=== PATIENT | female | born 1980 | race Caucasian/White ===

== ENCOUNTER 2017-02-17 11:53 | Emergency (ER) | payer OTHER ==
[~2017-02-17] VITALS: Ht 165.1 cm; Wt 72.7 kg
[~2017-02-17 11:53] MED LIST: ACYCLOVIR800 MG PO; AZITHROMYCIN250 MG PO; FENOFIBRATE145 MG PO; FERROUS SULF325 M1 PO; FLUZONE SPLT1 M1 IM; FREESTYLE LANCET; GLYBURIDE2.5 M1 PO; HYDROCHLORO25 MG/TAB PO; KEFLEX500 MG PO; LABETALOL200 MG PO; LISINOPRIL10 MG PO; METFORMIN500 M1 PO; METFORMIN500 MG PO; OBTREX DHA PO; PREDNISONE10 MG PO; PRENATA3 OR; PROCARDIA XL30 MG PO; TUBERSOL5 MG/0.1 M ID; [UNRECOGNIZED DRUG - CODE]
[2017-02-17] MEDS ORDERED: Metformin PO (12:10)
[2017-02-17] MEDS ORDERED: LOPID600 MG PO (12:16)
[2017-02-17 12:44] LABS: ALBUMIN 4.7 g/dL (3.2-5.0); ALKALINE PHOSPHATASE 85 u/l (38-126); ANION GAP 17 (6-22 (CALC)); BILIRUBIN, TOTAL 0.6 mg/dL (0.0-1.4); BUN 9 mg/dL (7-17); BUN/CREATININE RATIO 19 (12-20 (CALC)); CARBON DIOXIDE 24 mmol/l (22-30); CHLORIDE 101 mmol/l (95-108); CREATININE 0.5 mg/dL (0.5-1.0); GFR > 60 ML/MIN (>=60 (CALC)); GFR FOR AFR.AMER. > 60 ML/MIN (>=60 (CALC)); GLUCOSE 344 mg/dL (65-105); POTASSIUM 4.1 mmol/l (3.5-5.1); SGOT/AST 17 u/l (14-36); SGPT/ALT 28 u/l (9-52); SODIUM 138 mmol/l (137-146); TOTAL PROTEIN 7.5 g/dL (6.3-8.2)
[2017-02-17 12:47] LABS: HEMATOCRIT 46.5 % (37.0-47.0); HEMOGLOBIN 15.9 g/dl (12.0-16.0); IMMATURE GRANULOCYTES 0.3 % (0.0-1.0); MEAN CELL VOLUME 88.4 fL CALC (80.0-100.0); MEAN CORPUSCULAR HGB 30.2 pG CALC (26.0-32.0); MEAN CORPUSCULAR HGB CONC 34.2 g/L CALC (32.0-36.0); NEUT# 5.09 thou/uL (2.00-7.15); RED BLOOD COUNT 5.26 mill/uL (4.20-5.60); RED CELL DISTRI WIDTH 12.8 % (11.5-15.5)
[2017-02-17 12:56] LABS: MYOGLOBIN 15 ng/mL (0 - 62)
[2017-02-17 13:19] LABS: URINE BILIRUBIN - DIPSTICK NEGATIVE (NEGATIVE); URINE BLOOD DIPSTICK TRACE-INTACT (NEGATIVE); URINE CLARITY CLEAR; URINE COLOR YELLOW; URINE GLUCOSE - DIPSTICK >=1000 mg/dL (NEGATIVE); URINE KETONE NEGATIVE (NEGATIVE); URINE LEUK ESTERASE NEGATIVE (NEGATIVE); URINE NITRITE - DIPSTICK NEGATIVE (Negative); URINE PH 5.5 (4.5-8.0); URINE PROTEIN - DIPSTICK NEGATIVE (NEG-TRACE); URINE SPECIFIC GRAVITY <=1.005; URINE UROBILINOGEN - DIPSTICK 0.2 E.U./dL (0.2)
[2017-02-17 13:20] LABS: INTERNATIONAL NORMALIZED RATIO 0.9 RATIO (0.7-1.3)
[2017-02-17 13:21] LABS: BARBITURATES NEGATIVE (NEGATIVE); COCAINE NEGATIVE (NEGATIVE); METHADONE NEGATIVE (NEGATIVE); OXCYCODONE NEGATIVE (NEGATIVE); TETRAHYDROCANNABIONOL NEGATIVE (NEGATIVE); TRICYLIC ANTIDEPRESSANTS NEGATIVE (NEGATIVE)
[2017-02-17 13:29] LABS: D-DIMER 0.33 mg/L (0.19-0.60)
[2017-02-17 16:50] VITALS: BP 137/80
== END 2017-02-17 16:58 | disposition home or self-care (01) | DRG 313 ==
LOC: ED 11:53
PROVIDERS: Emergency Medicine
DX: R07.89 Other chest pain (principal); I10 Essential (primary) hypertension; E11.9 Type 2 diabetes mellitus without complications; E78.00 Pure hypercholesterolemia, unspecified; F17.210 Nicotine dependence, cigarettes, uncomplicated

== ENCOUNTER 2020-09-05 20:36 | Emergency (ER) | payer OTHER ==
[~2020-09-05] VITALS: Ht 165.1 cm; Wt 72.2 kg
[~2020-09-05 20:36] MED LIST changes: +LOPID600 MG PO; +METFORMIN500 M2 PO
[2020-09-05] MEDS ORDERED: LISINOP/HCTZ1 TA2 PO (20:57)
[2020-09-05] MEDS ORDERED: BACTRIM DS1 TAB PO (20:57)
[2020-09-05 21:23] VITALS: BP 188/93
== END 2020-09-05 21:35 | disposition home or self-care (01) ==
LOC: ED 20:36
DX: L03.115 Cellulitis of right lower limb (principal); I10 Essential (primary) hypertension; E11.9 Type 2 diabetes mellitus without complications; F17.200 Nicotine dependence, unspecified, uncomplicated; Z79.84 Long term (current) use of oral hypoglycemic drugs

== ENCOUNTER 2020-10-13 10:35 | Emergency (ER) | payer OTHER ==
[~2020-10-13] VITALS: Ht 165.1 cm; Wt 71.3 kg
[~2020-10-13 10:35] MED LIST changes: +BACTRIM DS1 TAB PO; +LISINOP/HCTZ1 TA2 PO
[2020-10-13] MEDS ORDERED: LISINOPRIL20 M1 PO (11:10)
[2020-10-13] MEDS ORDERED: PRE-NATAL PO (11:12)
[2020-10-13] MEDS ORDERED: FLOXIN OTIC0.3 % AD (12:24)
[2020-10-13 12:36] VITALS: BP 139/87
== END 2020-10-13 12:36 | disposition home or self-care (01) ==
LOC: ED 10:35
DX: H60.91 Unspecified otitis externa, right ear (principal); I10 Essential (primary) hypertension; E11.9 Type 2 diabetes mellitus without complications; Z79.84 Long term (current) use of oral hypoglycemic drugs; Z20.822 Contact with and (suspected) exposure to COVID-19

== ENCOUNTER 2022-05-30 15:13 | Emergency (ER) | payer OTHER ==
[~2022-05-30] VITALS: Ht 165.1 cm; Wt 69.0 kg
[~2022-05-30 15:13] MED LIST changes: +FLOXIN OTIC0.3 % AD; +LISINOPRIL20 M1 PO; +PRE-NATAL PO
[2022-05-30] MEDS ORDERED: BACTRIM DS1 TAB PO (17:01)
[2022-05-30 17:33] VITALS: BP 167/108
== END 2022-05-30 17:30 | disposition home or self-care (01) ==
LOC: ED 15:13
DX: L02.811 Cutaneous abscess of head [any part, except face] (principal); E11.9 Type 2 diabetes mellitus without complications; I10 Essential (primary) hypertension; Z79.84 Long term (current) use of oral hypoglycemic drugs

== ENCOUNTER 2023-04-14 16:44 | Observation (INO) | payer SELFPAY ==
[~2023-04-14] VITALS: Ht 165.1 cm; Wt 67.0 kg
[2023-04-14] VITALS (43 sets, daily range): BP systolic 88–136; BP diastolic 62–115
[2023-04-14] MEDS ORDERED: GLYBURIDE5 M1 PO (16:57)
[2023-04-14] MEDS ORDERED: LOPID600 MG PO (16:58)
[2023-04-14] MEDS ORDERED: JARDIANCE10 MG PO (16:59)
[2023-04-14 17:50] LABS: BASO% 0.2 % (0-3); EOS% 0.8 % (0-8); HEMATOCRIT 45.7 % (37.0-47.0); HEMOGLOBIN 15.1 g/dl (12.0-16.0); IMMATURE GRANULOCYTES 0.1 % (0.0-5.0); LYMPH% 42.3 % (15-41); MEAN CELL VOLUME 86.7 fL CALC (80.0-100.0); MEAN CORPUSCULAR HGB 28.7 pG CALC (26.0-32.0); MONO% 4.6 % (2-13); NEUT# 4.51 thou/uL (2.00-7.15); RED BLOOD COUNT 5.27 mill/uL (4.20-5.60); RED CELL DISTRI WIDTH 13.6 % (11.5-15.5)
[2023-04-14 18:04] LABS: ALKALINE PHOSPHATASE 83 u/l (38-126); BUN 18 mg/dL (7-17); BUN/CREATININE RATIO 27 (12-20 (CALC)); CHLORIDE 104 mmol/l (95-108); CREATININE 0.7 mg/dL (0.5-1.0); GFR FOR AFR.AMER. > 60 ML/MIN (>=60 (CALC)); GFR OTHER RACES > 60 ML/MIN (>=60 (CALC)); LIPASE 253 u/l (23-300); POTASSIUM 3.9 mmol/l (3.5-5.1); SGOT/AST 25 u/l (14-36); SODIUM 138 mmol/l (137-146)
[2023-04-14 18:07] LABS: ALBUMIN 4.8 g/dL (3.2-5.0); ANION GAP 18 (6-22 (CALC)); BILIRUBIN, TOTAL 0.7 mg/dL (0.02-1.3); CARBON DIOXIDE 20 mmol/l (22-30); TOTAL PROTEIN 8.9 g/dL (6.3-8.2)
[2023-04-15 01:18] VITALS: BP 115/79
[2023-04-15 03:48] VITALS: BP 101/65
[2023-04-15 04:40] VITALS: BP 101/65
[2023-04-15 04:58] LABS: BASO% 0.3 % (0-3); HEMATOCRIT 40.6 % (37.0-47.0); HEMOGLOBIN 13.3 g/dl (12.0-16.0); IMMATURE GRANULOCYTES 0.2 % (0.0-5.0); LYMPH% 46.6 % (15-41); MEAN CELL VOLUME 87.5 fL CALC (80.0-100.0); MEAN CORPUSCULAR HGB 28.7 pG CALC (26.0-32.0); MEAN CORPUSCULAR HGB CONC 32.8 g/dL CAL (32.0-36.0); MONO% 5.8 % (2-13); NEUT# 4.01 thou/uL (2.00-7.15); NEUT% 46.1 % (42-76); RED BLOOD COUNT 4.64 mill/uL (4.20-5.60); RED CELL DISTRI WIDTH 13.6 % (11.5-15.5)
[2023-04-15 05:15] LABS: ALKALINE PHOSPHATASE 64 u/l (38-126); ANION GAP 15 (6-22 (CALC)); BILIRUBIN, TOTAL 0.8 mg/dL (0.02-1.3); BUN 26 mg/dL (7-17); BUN/CREATININE RATIO 38 (12-20 (CALC)); CARBON DIOXIDE 20 mmol/l (22-30); CHLORIDE 103 mmol/l (95-108); CREATININE 0.7 mg/dL (0.5-1.0); GFR FOR AFR.AMER. > 60 ML/MIN (>=60 (CALC)); GFR OTHER RACES > 60 ML/MIN (>=60 (CALC)); SGOT/AST 22 u/l (14-36); SODIUM 134 mmol/l (137-146); TOTAL PROTEIN 7.2 g/dL (6.3-8.2)
[2023-04-15 07:00] VITALS: BP 119/75
[2023-04-15 11:00] VITALS: BP 99/65
[2023-04-15 11:15] VITALS: BP 158/92
[2023-04-15 11:43] LABS: URINE BILIRUBIN - DIPSTICK NEGATIVE (NEGATIVE); URINE COLOR YELLOW; URINE GLUCOSE - DIPSTICK >=1000 mg/dL (NEGATIVE); URINE KETONE 15 mg/dL (NEGATIVE); URINE PH 5.5 (4.5-8.0); URINE PROTEIN - DIPSTICK NEGATIVE (NEG-TRACE); URINE UROBILINOGEN - DIPSTICK 0.2 E.U./dL (0.2)
[2023-04-15 11:44] LABS: URINE BLOOD DIPSTICK TRACE (NEGATIVE); URINE LEUK ESTERASE TRACE (NEGATIVE); URINE NITRITE - DIPSTICK POSITIVE (Negative)
[2023-04-15 11:47] LABS: URINE BACTERIA FEW hpf; URINE SQUAMOUS EPITHELIAL CELL FEW EPI/hpf (0-FEW); URINE WBC 50-100 WBC/hpf (0-5)
[2023-04-15] MEDS ORDERED: CIPROFLOXACN500 MG PO (13:08)
== END 2023-04-15 13:10 | disposition home or self-care (01) | DRG 313 ==
LOC: ED 16:44 → ED-I 19:40 → ED 20:10 → MS2 20:11
PROVIDERS: Nurse Practitioner; ADMIT Internal Medicine; ATTEND Internal Medicine
DX: R07.9 Chest pain, unspecified (principal); I10 Essential (primary) hypertension; E11.9 Type 2 diabetes mellitus without complications; E78.00 Pure hypercholesterolemia, unspecified; Z79.84 Long term (current) use of oral hypoglycemic drugs
CPT/HCPCS: G0378

== ENCOUNTER 2024-05-01 08:10 | Emergency (ER) | payer SELFPAY ==
[~2024-05-01] VITALS: Ht 165.1 cm; Wt 67.0 kg
[~2024-05-01 08:10] MED LIST changes: +CEFDINIR300 MG PO; +CIPROFLOXACN500 MG PO; +GLYBURIDE5 M1 PO; +JARDIANCE10 MG PO; +TRAMADOL HYDROC50 M1 PO
[2024-05-01 08:40] VITALS: BP 163/98
[2024-05-01 08:45] VITALS: BP 146/105
[2024-05-01] MEDS ORDERED: BACTRIM DS1 TAB PO (08:49)
[2024-05-01 08:53] VITALS: BP 156/97
[2024-05-01 08:56] VITALS: BP 156/97
== END 2024-05-01 09:01 | disposition home or self-care (01) | DRG 603 ==
LOC: ED 08:10
PROC: 0W9 Anatomical Regions, General, Drainage (ICD-10-PCS; principal; 2024-05-01)
DX: L02.811 Cutaneous abscess of head [any part, except face] (principal); B95.61 Methicillin susceptible Staphylococcus aureus infection as the cause of diseases classified elsewhere; I10 Essential (primary) hypertension; E11.9 Type 2 diabetes mellitus without complications; Z79.84 Long term (current) use of oral hypoglycemic drugs